=== PATIENT | female | born 1945 | race Caucasian/White ===

== ENCOUNTER 2016-10-20 07:02 | Day surgery (SDC) | payer MEDICARE ==
[2016-10-20] MEDS ORDERED: LACTATED RINGERS 1,000 ML IV ONE (07:45)
[2016-10-20] MEDS ORDERED: MIDAZOLAM 2 MG/2 ML VIAL IVP ONE (08:12)
[2016-10-20] MEDS ORDERED: fentaNYL 250 MCG/5 ML VIAL IVP ONE (08:12)
== END 2016-10-20 07:03 | disposition home or self-care (01) ==
PROC: 0DJD8ZZ Inspection of Lower Intestinal Tract, Via Natural or Artificial Opening Endoscopic (ICD-10-PCS; principal; 2016-10-20 08:15)
DX: R19.5 Other fecal abnormalities (principal); K57.30 Diverticulosis of large intestine without perforation or abscess without bleeding; K64.8 Other hemorrhoids; E11.9 Type 2 diabetes mellitus without complications; F32.9 Major depressive disorder, single episode, unspecified; Z79.84 Long term (current) use of oral hypoglycemic drugs; F41.9 Anxiety disorder, unspecified; Z82.49 Family history of ischemic heart disease and other diseases of the circulatory system
CPT/HCPCS: 45378; J3010; J7120

== ENCOUNTER 2017-06-08 13:26 | Outpatient (CLI) | payer MEDICARE ==
--- NOTE | 2017-06-09 18:38 | Mammography Report ---
DIGITAL SCREENING MAMMOGRAM: 06/08/2017 CLINICAL INDICATION: A 71-year-old for screening. COMPARISON: 05/2015, 10/2012, 03/2012, 02/2012. TECHNIQUE: Routine CC and MLO projections as well as bilateral laterally exaggerated craniocaudal vi ews were obtained of the breasts. The breasts again demonstrate heterogeneously dense fibroglandular parenchyma bilaterally. Coarse an d punctate, typically benign calcifications are present. No suspicious masses, clustered microcalcif ications, or regions of architectural distortion are identified. IMPRESSION: BENIGN FINDINGS. RECOMMENDATION: ROUTINE ANNUAL SCREENING UNLESS OTHERWISE CLINICALLY INDICATED. BIRADS CATEGORY: 2, BENIGN FINDINGS. STANDARD QUALIFYING STATEMENTS 1. This examination was reviewed with the aid of Computed-Aided Detection (CAD). 2. A negative or benign imaging report should not delay biopsy if clinically suspicious findings are present. Consider surgical consultation if warranted. More than 5% of cancers are not identified b y imaging. 3. Dense breasts may obscure an underlying neoplasm. JOB #: [id number] EXT JOB #:[id number]
== END 2017-06-08 13:27 | disposition home or self-care (01) ==
LOC: DI.S 13:26
PROVIDERS: ATTEND Physician Assistant
DX: Z12.31 Encounter for screening mammogram for malignant neoplasm of breast (principal)
CPT/HCPCS: 77067

== ENCOUNTER 2019-11-09 11:39 | Outpatient (CLI) | payer MEDICARE, OTHER ==
--- NOTE | 2019-11-09 16:55 | CT Report ---
Reason: CONTUSION OF SCALP Procedure Date: 11/09/2019 Accession Number: [id number] / [id number] Procedure: CT - HEAD WO CPT Code: Final Report FULL RESULT: EXAM: CT HEAD EXAM DATE: 11/09/2019 12:05 PM. CLINICAL HISTORY: CONTUSION OF SCALP. COMPARISON: None. TECHNIQUE: Multiaxial CT images were obtained from the foramen magnum to the vertex. Reformats: Sagittal and coronal. IV contrast: None. In accordance with CT protocol optimization, one or more of the following dose reduction techniques were utilized for this exam: automated exposure control, adjustment of mA and/or KV based on patient size, or use of iterative reconstructive technique. FINDINGS: Parenchyma: No intraparenchymal hemorrhage. No evidence of mass, midline shift, or CT findings of acute infarction. Mcconnell-white differentiation is distinct. Mild patchy hypodensity in the periventricular white matter and centrum semiovale, nonspecific but probably chronic microvascular ischemic change. Extraaxial Spaces: Normal for age. No subdural or epidural collections identified. Ventricles: Normal in size and position. Sinuses and Orbits: Imaged paranasal sinuses, orbits, and mastoids show no significant abnormality. Bones: No evidence of fracture or calvarial defect. Other: None. IMPRESSION: 1. No definite acute intracranial abnormality. RADIA
== END 2019-11-09 11:40 | disposition home or self-care (01) ==
LOC: DI 11:39
PROVIDERS: ATTEND Nurse Practitioner Family
DX: S00.83XA Contusion of other part of head, initial encounter (principal)
CPT/HCPCS: 70450

== ENCOUNTER 2020-08-20 08:52 | Outpatient (CLI) | payer MEDICARE, OTHER ==
--- NOTE | 2020-08-21 09:47 | Mammography Report ---
BILATERAL DIGITAL SCREENING MAMMOGRAM 3D/2D WITH EXAGGERATED CC: 08/20/2020 CLINICAL: Routine screening. Routine screening. Comparison is made to exams dated: 06/08/2017 mammogram and 06/12/2015 mammogram - [facility]. The tissue of both breasts is heterogeneously dense. This may lower the sensitivity of mammography. There are grouped heterogeneous punctate calcifications in the left breast at 8 o'clock posterior dep th. No other significant masses, calcifications, or other findings are seen in either breast. IMPRESSION: INCOMPLETE: NEEDS ADDITIONAL IMAGING EVALUATION The grouped heterogeneous punctate calcifications in the left breast are indeterminate. Mediolateral , spot magnification, and additional views are recommended. This exam was interpreted at Station ID: [id number]. NOTE: For mammograms, a report in lay terms will be sent to the patient. Approximately 15% of breast malignancies will not be visualized mammographically. In the management of a palpable breast mass, a negative mammogram must not discourage biopsy of a clinically suspicious lesion. Electronically Signed By: Butch Zaidi M.D. ddp/penrad:08/20/2020 11:10:36 ACR BI-RADS Category 0: Incomplete 3340F PARENCHYMAL PATTERN: (D) - The breast(s) demonstrate(s) heterogeneously dense fibroglandular parkiersteny ma. BI-RADS CATEGORY: (0) - 0 RECOMMENDATION: (ADDMAM) - Recommend additional mammographic views. [id number] Immediate follow-up LATERALITY: (B)
== END 2020-08-20 08:53 | disposition home or self-care (01) ==
LOC: DI.S 08:52
PROVIDERS: ATTEND Nurse Practitioner Family
DX: Z12.31 Encounter for screening mammogram for malignant neoplasm of breast (principal); R92.1 Mammographic calcification found on diagnostic imaging of breast

== ENCOUNTER 2020-09-13 10:14 | Outpatient (CLI) | payer MEDICARE, OTHER ==
--- NOTE | 2020-09-14 13:21 | Mammography Report ---
UNILATERAL LEFT DIGITAL DIAGNOSTIC MAMMOGRAM 3D/2D: 09/13/2020 CLINICAL: Patient returns for magnification views of microcalcifications in the left breast. Addition al evaluation requested from prior study. Comparison is made to exams dated: 08/20/2020 mammogram, 06/08/2017 mammogram, and 06/12/2015 mammogr am - [facility]. The tissue of left breast is heterogeneously dense. This may lowe r the sensitivity of mammography. There also are 0.8 cm grouped heterogeneous punctate calcifications in the left breast at 7 o'clock p osterior depth. These are seen in additional views. No other significant masses or calcifications are seen in the breast. IMPRESSION: PROBABLY BENIGN The 0.8 cm grouped heterogeneous punctate calcifications in the left breast at 7 o'clock posterior de pth resemble a degenerating fibroadenoma and are probably benign. A follow-up left mammogram in 6 months is recommended to demonstrate stability. This exam was interpreted at Station ID: [id number]. NOTE: For mammograms, a report in lay terms will be sent to the patient. Approximately 15% of breast malignancies will not be visualized mammographically. In the management of a palpable breast mass, a negative mammogram must not discourage biopsy of a clinically suspicious lesion. Electronically Signed By: Cory Newberry M.D. ar/:09/13/2020 13:35:04 ACR BI-RADS Category 3: Probably benign 3343F PARENCHYMAL PATTERN: (D) - The breast(s) demonstrate(s) heterogeneously dense fibroglandular vidya mcintosh. BI-RADS CATEGORY: (3) - 3 Mammogram [id number] 6 month follow-up LATERALITY: (L)
== END 2020-09-13 10:15 | disposition home or self-care (01) ==
LOC: DI 10:14
PROVIDERS: ATTEND Nurse Practitioner Family
DX: R92.1 Mammographic calcification found on diagnostic imaging of breast (principal)